=== PATIENT | female | born 1965 | race Two or more races ===

== ENCOUNTER 2020-12-24 05:10 | Inpatient (IN) | payer OTHER ==
[~2020-12-24] VITALS: Ht 162.6 cm; Wt 90.7 kg
[2020-12-24] VITALS (12 sets, daily range): BP systolic 96–139; BP diastolic 48–86
[~2020-12-24 05:10] MED LIST: JANUMET 50-1,01 EACH ORAL; LISINOPRIL-HCT1 EACH ORAL; ZOCOR10 MG ORAL
[2020-12-24] MEDS ORDERED: oxyCONTIN 20mg tab ORAL ONE (06:00)
[2020-12-24] MEDS ORDERED: celeBREX 200mg Cap **SURGERY PATIENTS ONLY ORAL ONE (06:21)
[2020-12-24] MEDS ORDERED: Tranexamic Acid 100 ML IVPB ONE (06:45)
[2020-12-24] MEDS ORDERED: NS Irrig 2000ml IRRIG ONE (06:49)
[2020-12-24] MEDS ORDERED: Sterile Water Irrig 2000ml IRRIG ONE (06:49)
[2020-12-24] MEDS ORDERED: LR 1000ml ONE (06:49)
[2020-12-24] MEDS ORDERED: Ketorolac 30mg Inj ONE (06:51)
[2020-12-24] MEDS ORDERED: Kenalog-40 1ml Vial ONE (06:52)
[2020-12-24] MEDS ORDERED: Bupivacaine w/Epi 0.25% 50ml vial INJ ONE (06:53)
[2020-12-24] MEDS ORDERED: Bacitracin 50000 Units Vial ONE (06:53)
[2020-12-24] MEDS ORDERED: NeoSporin Gu Irrig 1ml Amp IRRIG ONE (06:53)
[2020-12-24] MEDS ORDERED: Duramorph PF 5mg/10ml amp ONE (06:53)
[2020-12-24] MEDS ORDERED: EPINEPHrine 1mg/1ml Amp ONE ×2 (06:55→09:16)
[2020-12-24] MEDS ORDERED: cloNIDine 1000mcg/10ml inj ONE (06:55)
[2020-12-24] MEDS ORDERED: Bupivacaine 0.5% Inj 30 ml vial INJ ONE (06:55)
[2020-12-24] MEDS ORDERED: Lidocaine 1% Plain 30 ml INJ ONE (07:02)
[2020-12-24] MEDS ORDERED: Meperidine 25mg/1ml Inj (FOR RIGORS ONLY) IV PRN (07:15)
[2020-12-24] MEDS ORDERED: DiphenhydrAMINE 50mg/ml Inj IVP PRN (07:15)
[2020-12-24] MEDS ORDERED: Hydromorphone 0.5mg/0.5ml inj IVP PRN (07:15)
[2020-12-24] MEDS ORDERED: Labetalol 5mg/ml 20ml vial IV PRN (07:15)
[2020-12-24] MEDS ORDERED: Metoclopramide 10mg/2ml Inj IVP PRN (07:15)
[2020-12-24] MEDS ORDERED: LR 1000ml 1,000 ML IVLG SCH (07:15)
[2020-12-24] MEDS ORDERED: LORazepam Inj 2mg/ml 1ml IV PRN (07:15)
[2020-12-24] MEDS ORDERED: Atropine Sulfate 0.4mg/ml inj IVP PRN (07:15)
[2020-12-24] MEDS ORDERED: HYDROcodone/Acetamin 7.5/325 tab ORAL PRN (07:15)
[2020-12-24] MEDS ORDERED: oxyCODONE HCL/Acetaminophen 5/325mg ORAL PRN (07:15)
[2020-12-24] MEDS ORDERED: HYDROcodone/Acetamin 5/325 tab ORAL PRN (07:15)
[2020-12-24] MEDS ORDERED: Midazolam 2mg/2ml Inj IVP PRN (07:15)
[2020-12-24] MEDS ORDERED: fentaNYL 100 mcg/2 mL IV PRN (07:15)
--- NOTE | 2020-12-24 07:19 | Anethesia Preoperative Eval ---
Anesthesia Pre-op PMH/ROS General Date of Evaluation: Dec 24, 2020 Time of Evaluation: 06:49 Anesthesiologist: Inez ASA Score: ASA 3 Mallampati Score Class I : Soft palate, uvula, fauces, pillars visible Class II: Soft palate, uvula, fauces visible Class III: Soft palate, base of uvula visible Class IV: Only hard plate visible Mallampati Classification: Class II Surgeon: Geovanny Diagnosis: R Knee Pain Surgical Procedure: R Knee TKA Anesthesia History: none Family History: no anesthesia problems Allergies: Coded Allergies: No Known Allergies (Unverified , 12/23/20) Medications: see eMAR Patient NPO?: Yes Past Medical History Cardiovascular: Reports: HTN, other - HL Endocrine: Reports: DM Other: obesity - BMI 36 Anesthesia Pre-op Phys. Exam Physician Exam Last Vital Signs Date Time Temp Pulse Resp B/P (MAP) Pulse Ox O2 Delivery O2 Flow Rate FiO2 12/24/20 06:14 Room Air 12/24/20 05:59 98.2 63 18 138/74 (95) 100 Constitutional: NAD Neurologic: CN 2-12 intact Cardiovascular: RRR Respiratory: CTA Gastrointestinal: S/NT/ND Airway Exam Mallampati Score: Class II MO: full ROM: limited Teeth: missing, intact Anesthesia Pre-op A/P Risk Assessment & Plan Assessment: ASA 3 Plan: Spinal, GA, SED Status Change Before Surgery: No Pre-Antibiotics Dru Gram Ancef IV Given Within 1 Hr of Incision: Yes Time Given: 07:46 Joshua Wiley MD Dec 24, 2020 07:19
--- NOTE | 2020-12-24 07:19 | Immediate Post-Op Evaluation ---
Immediate Post-Op Evalulation Immediate Post-Op Evalulation Procedure: R TKA Date of Evaluation: Dec 24, 2020 Time of Evaluation: 09:54 IV Fluids: 1000 LR Blood Products: 0 Estimated Blood Loss: 50 Urinary Output: 300 Blood Pressure Systolic: 145 Blood Pressure Diastolic: 73 Pulse Rate: 85 Respiratory Rate: 16 O2 Sat by Pulse Oximetry: 100 Temperature (Fahrenheit): 97.6 Pain Score (1-10): 2 Nausea: No Vomiting: No Complications 0 Patient Status: awake, reacts, patent, none Hydration Status: adequate Dru Gram Ancef IV Given Within 1 Hr of Incision: Yes Time Given: 07:46 Joshua Wiley MD Dec 24, 2020 07:19
--- NOTE | 2020-12-24 07:41 | Pre-Procedure Note/Attestation ---
Pre-Procedure Note/Attestation Complete Prior to Procedure Planned Procedure: right Procedure Narrative: tka Indications for Procedure Pre-Operative Diagnosis: right knee replacement Attestation I attest that I discussed the nature of the procedure; its benefits; risks and complications; and alternatives (and the risks and benefits of such alternatives), prior to the procedure, with the patient (or the patient's legal cash posting representative). I attest that, if there was a reasonable possibility of needing a blood transfu fiorella, the patient (or the patient's legal cash posting representative) was given the [facility] standardized written summary, pursuant to the [place] Blood Safety Act ([place] Health and Safety Code # 1645, as amended). I attest that I re-evaluated the patient just prior to the surgery and that there has been no change in the patient's H&P, except as documented below: Alexx Small MD Dec 24, 2020 07:41
--- NOTE | 2020-12-24 07:41 | Operative Note - PDOC ---
Operative Note Operative Note Pre-op Diagnosis: right knee replacement Procedure: see op report Post-op Diagnosis: same as pre-op plus Operative Findings: consistent w/pre-op dx studies Anesthesia: regional Specimen: none Complications: none Condition: stable Estimated Blood Loss: none Implant(s) used?: Yes Alexx Small MD Dec 24, 2020 07:41
[2020-12-24] MEDS ORDERED: oxyCODONE 5mg IR tab ORAL PRN (07:45)
[2020-12-24] MEDS ORDERED: Morphine Sulfate 2mg/ml Inj IVP PRN (07:45)
[2020-12-24] MEDS ORDERED: Milk of Magnesia 30ml Ud ORAL PRN (07:45)
[2020-12-24] MEDS ORDERED: Morphine Sulfate 4mg/ml Inj IVP PRN ×2 (07:45→12:30)
[2020-12-24] MEDS ORDERED: D5 1/2NS w/KCl 20mEq 1,000 ML IV SCH (07:45)
[2020-12-24] MEDS ORDERED: Ropivacaine 5mg/ml Vial 30ml INJ ONE (09:16)
--- NOTE | 2020-12-24 09:43 | 48 Hour Post Anesthesia Eval ---
Post Anesthesia Evaluation Procedure: R TKA Date of Evaluation: Dec 24, 2020 Time of Evaluation: 12:34 Blood Pressure Systolic: 126 0: 48 Pulse Rate: 72 Respiratory Rate: 18 Temperature (Fahrenheit): 97.6 O2 Sat by Pulse Oximetry: 97 Airway: patent Nausea: No Vomiting: No Pain Intensity: 0 Hydration Status: adequate Cardiopulmonary Status: Stable Mental Status/LOC: patient returned to baseline Follow-up Care/Observations: 0 Post-Anesthesia Complications: 0 Follow-up care needed: N/A Joshua Wiley MD Dec 24, 2020 09:43
--- NOTE | 2020-12-24 12:37 | Diagnostic Imaging Report ---
Indication: Knee pain. Postop Technique: 2 views of the right knee. Comparison: None Findings: Patient status post recent total knee arthroplasty. Alignment appears satisfactory. No evidence of acute periprostatic fracture. Gas is in the soft tissues compatible with postoperative acquisition of the radiograph. Impression: Status post recent right total knee arthroplasty.
--- NOTE | 2020-12-24 12:58 | NUR ---
PT NOTE Patient seen for CPM setup RLE 0-60 degrees flexion with good tolerance. Reviewed with patient and Lula LOVE duration of CPM use today and use of control buttons. Patient unable to perform OOB activities at this time, will follow up in a.m.
[2020-12-24] MEDS: 1/2NS w/KCl 20mEq 1000ml 1,000 ML IV SCH ×2 (13:27→20:41)
[2020-12-24] MEDS: ceFAZolin 2gm/50ml Premix 50 ML IV SCH ×2 (15:56→23:46)
[2020-12-24] MEDS: NovoLOG Insulin Flexpen SUBQ SCH ×2 (15:58→20:44)
--- NOTE | 2020-12-24 16:44 | Operative Note - Dictated ---
DATE OF OPERATION: 12/24/2020 PREOPERATIVE DIAGNOSIS: Right knee traumatic aggravation of osteoarthritis. POSTOPERATIVE DIAGNOSIS: Right knee traumatic aggravation of osteoarthritis. PROCEDURE: Right total knee arthroplasty. SURGEON: Alexx Small MD. ANESTHESIA: Spinal. INDICATION FOR PROCEDURE: The patient is a pleasant 55-year-old female, who has had progressive right knee pain in lateral compartment, failed conservative treatment, elected to undergo right total knee arthroplasty. Risks, limitations, expectations, and complications of the procedure were discussed in detail. All questions addressed. DESCRIPTION OF PROCEDURE: After informed consent was obtained, the patient was brought to the operating room. The patient was placed under spinal anesthesia. Ancef was administered. Tranexamic acid administered. Time-out was performed. Right leg was prepped and draped in a sterile manner. A standard medial parapatellar arthrotomy was performed. Distal femur was well visualized. A distal femoral cutting block was placed and distal femur was resected. Posterior and anterior sizing guide was placed, measured between the 5 and 6, size 5 was selected and appropriately externally rotated 60 degrees. We made sure it was perpendicular to mechanical axis. However, 5 seemed a little bit too large, therefore 4 was selected. Anterior and posterior chamfer cuts were then made. At this point, external tibial cutting guide was placed, proximal tibia was resected with a size 4 femur, size 2 tibial base plate, 9 mm insert, and knee was taken to full extension, and had good stability at full extension, 10 degrees of flexion, 90 degrees flexion as well as mid flexion. Good tracking of the patella. At this point, the proximal tibia was well visualized and it seemed like the size 3 tibial base plate would provide appropriate coverage. It was appropriately externally rotated and keel punch was prepared. Patella was everted and resected. Freehand resection was performed. A 29 mm patellar component was selected, recalibrated to 22 mm. At this point, the cement was prepared. Implants were impacted into place. Excess cement was removed. Arthrotomy site was closed with #1 Vicryl suture, 2-0 Vicryl suture, and 3-0 Monocryl sutures. Steri-Strips and sterile dressing were applied. ESTIMATED BLOOD LOSS: None. COMPLICATIONS: None. SPECIMENS: None. IMPLANTS: Include size 4 femoral component, size 3 tibial base plate, 9 mm tibial insert, 29 mm patellar component. Alexx Small M.D. DR: GREGG JOB#: [id number] CC: DENISE
[2020-12-24] MEDS: Docusate 100mg cap ORAL SCH (18:02)
[2020-12-24] MEDS: Acetaminophen 500mg (ES) tab ORAL SCH (18:02)
[2020-12-24] MEDS: Aspirin Baby 81mg ORAL SCH (18:02)
--- NOTE | 2020-12-24 19:21 | NUR ---
NURSE HAND-OFF REPORT: Important Events on Shift:[Patient is POst op Right knee arthroplasty] Patient Status: [Full code] Diet: [Regular] Pending Orders: [] Pending Results/Labs:[] Pending MD notification:[] Latest Vital Signs: Temperature 97.9 , Pulse 59 , B/P 129 /63 , Respiratory Rate 20 , O2 SAT 99 , Nasal Cannula, O2 Flow Rate 3.0 . Vital Sign Comment: [] EKG Rhythm: rbb Rhythm change?: MD Notified?: - MD Response: Latest Meraz Fall Score: 55 Fall Risk: High Risk Safety Measures: Call light Within Reach, Bed Alarm Zone 2, Side Rails Side Rails x2, Bed position Low and Locked. Fall Precautions: Patient Fall Education Report given to [IVAN Juarez].
--- NOTE | 2020-12-24 19:43 | NUR ---
NURSE NOTES: Report received from IVAN Cotton. Patient is awake on bed in stable condition. Alert and oriented x 4. On regular diet, instructed and amenable. On oxygen via nasal cannula @ 3Lpm saturating 97% with no reported shortness of breath. With lee catheter in place, drained via gravity with andrés color urine output. IV site is on left hand g-18 running 1/2 NS + 20 meqs KCL @ 150cc/hour that is patent and intact. Safety measures are in place, bed in lowest and locked position, side rails up x 2, call light button and bedside table within reach, instructed to call for any assistance needed, will continue plan of care.
[2020-12-24] MEDS: oxyCONTIN 20mg tab ORAL SCH (20:43)
--- NOTE | 2020-12-24 21:10 | NUR ---
NURSE NOTES: Patient is post op right knee arthroplasty, IS provided at bedside and instructed on how to use it and how often.
[2020-12-25] VITALS: BP 140/55
[2020-12-25] MEDS: 1/2NS w/KCl 20mEq 1000ml 1,000 ML IV SCH ×2 (03:18→10:44)
[2020-12-25 04:00] VITALS: BP 132/60
[2020-12-25] MEDS: NovoLOG Insulin Flexpen SUBQ SCH ×2 (05:26→11:53)
--- NOTE | 2020-12-25 05:40 | NUR ---
NURSE NOTES: Naranjo catheter removed, catheter intact. Instructed to increase oral fluid intake and call for assistance if she feels the urge to urinate. Will continuously monitor.
[2020-12-25] MEDS ORDERED: ceFAZolin 1gm IVPB IVPB ONE ×2 (06:00)
[2020-12-25] MEDS ORDERED: celeBREX 200mg Cap **SURGERY PATIENTS ONLY ORAL ONE (06:00)
--- NOTE | 2020-12-25 07:11 | NUR ---
NURSE HAND-OFF REPORT: Important Events on Shift: Patient has been resting well the whole shift, complaints of pain and resolved with oxycodone and morphine. Had 1 episode of vomiting few minutes after receiving her morphine. Patient Status: Patient is awake on bed in stable condition. Plan of care endorsed. Diet: Regular diet. Pending Orders: none Pending Results/Labs:AM labs Pending MD notification:none Latest Vital Signs: Temperature 98.4 , Pulse 62 , B/P 132 /60 , Respiratory Rate 24 , O2 SAT 95 , Nasal Cannula, O2 Flow Rate 3.0 . Vital Sign Comment: stable EKG Rhythm: rbb Rhythm change?: MD Notified?: - MD Response: Latest Meraz Fall Score: 40 Fall Risk: Medium Risk Safety Measures: Call light Within Reach, Bed Alarm Zone 1, Side Rails Side Rails x2, Bed position Low and Locked. Fall Precautions: Yellow Socks Patient Fall Education Report given to IVAN Cotton.
[2020-12-25 07:14] LABS: HEMATOCRIT 34.4 % (37.0-47.0); HEMOGLOBIN 11.1 G/DL (12.0-16.0); MEAN CORPUSCULAR VOLUME 84 FL (80-99); PLATELET COUNT 323 K/UL (150-450); RED BLOOD COUNT 4.09 M/UL (4.20-5.40); RED CELL DISTRIBUTION WIDTH 12.7 % (11.6-14.8); WHITE BLOOD COUNT 15.6 K/UL (4.8-10.8)
--- NOTE | 2020-12-25 07:23 | NUR ---
NURSE NOTES: Received patient from IVAN Burroughs. Patient is AO x4 awake and able to make needs known. Patient shows no signs of distress and denies feeling pain at the moment. Patient is on room air and shows no signs of respiratory distress. IV is intact and running 1/2 NS w/ 20 KCL @ 150 cc/hr. There are no signs of erythema, infiltration, or bleeding. Patient is on CPM and tolerating well. Bed is in the lowest position, call light is within reach, side rails up x3. Will continue plan of care.
[2020-12-25 08:00] VITALS: BP 134/64
[2020-12-25] MEDS ORDERED: celeBREX 200mg Cap **SURGERY PATIENTS ONLY ORAL SCH (09:00)
[2020-12-25] MEDS: Docusate 100mg cap ORAL SCH ×2 (09:03→12:18)
[2020-12-25] MEDS: oxyCONTIN 20mg tab ORAL SCH (09:04)
--- NOTE | 2020-12-25 09:04 | 48 Hour Post Anesthesia Eval ---
Post Anesthesia Evaluation Procedure: R TKA Date of Evaluation: Dec 25, 2020 Time of Evaluation: 09:03 Blood Pressure Systolic: 136 0: 72 Pulse Rate: 64 Respiratory Rate: 20 Temperature (Fahrenheit): 97.6 O2 Sat by Pulse Oximetry: 98 Airway: patent Nausea: No Vomiting: No Pain Intensity: 2 Hydration Status: adequate Cardiopulmonary Status: stable Mental Status/LOC: patient returned to baseline Follow-up Care/Observations: n/a Post-Anesthesia Complications: none Follow-up care needed: N/A Zach Phipps MD Dec 25, 2020 09:04
[2020-12-25] MEDS: Aspirin Baby 81mg ORAL SCH (09:05)
[2020-12-25] MEDS: Acetaminophen 500mg (ES) tab ORAL SCH ×2 (09:05→12:18)
--- NOTE | 2020-12-25 09:35 | NUR ---
PT EVALUATION NOTE Patient seen for initial evaluation and treatment initiated. Patient presents with R knee pain and impaired functional mobility s/p R TKA. Patient requires CGA/min assist for bed mobility and CGA for transfers with FWW. Patient able to ambulate 50 ft with CGA and FWW, partial step-to gait pattern and c/o fatigue after ambulation. Patient will benefit from skilled inpatient PT intervention to increase RLE strength and postural stability for improved level of functional mobility and safety. Recommend discharge home with home PT follow-up. Recommend FWW for ambulation and raised toilet seat for home use. Addendum: 12/25/20 at 1019 by ОЛЬГА MERINO PT Amended: Links added.
[2020-12-25 12:00] VITALS: BP 132/61
--- NOTE | 2020-12-25 15:08 | NUR ---
NURSE NOTES: Dr. Small gave discharge order. Asked for patient to take walker and raised toilet seat. Patient is on room air and off lee catheter. Patient is voiding clear yellow urine. IV is taken off. Patient shows no signs of distress or pain at the time. Instructions to continue exercises at home given and to follow up with in [address] Small said medications were faxed to pharmacy already.
[2020-12-25] MEDS ORDERED: NS 275ml ONE (15:10)
--- NOTE | 2020-12-29 08:20 | Discharge Summary ---
Discharge Summary Discharge Summary _ Date of admission: 12/24/2020 Date of discharge: 12/25/[address] Small History of Present Illness and Brief Hospital Course Ms. Kurtis Huston is a 55-year-old [place] [facility] [place]. Patient had progressive right knee pain in the lateral compartment. Patient failed conservative treatment and elected to undergo right total knee arthroplasty. Patient was taken to the OR and right total knee arthroplasty was performed. Patient tolerated the procedure well. The details of the surgery can be found in the operative note by Dr. Small. Patient was also evaluated by a physical therapist after the surgery. Patient was able to ambulate 50 feet with a walker. Patient was medically stable for discharge and was discharged home on 12/25/2020. Patient was instructed to follow-up with Dr. Small in 1 week upon discharge. Her prescriptions were faxed to her pharmacy. Consultants: None Discharge Condition Stable Discharge Activity Exercise leg Discharge Diet Regular Final diagnoses Right knee traumatic aggravation of osteoarthritis s/p Right total knee arthroplasty I have been assigned to dictate discharge summary for this account. I was not involved in the patient's management Angelo Pena Dec 29, 2020 08:20
== END 2020-12-25 15:11 | disposition home or self-care (01) | DRG 470 ==
LOC: SDSOVERFLO 05:17 → EDSEX 07:00 → 2E 12:43
PROC: 0SRC0J9 Replacement of Right Knee Joint with Synthetic Substitute, Cemented, Open Approach (ICD-10-PCS; principal; 2020-12-24 07:00)
DX: M17.11 Unilateral primary osteoarthritis, right knee (principal); E11.9 Type 2 diabetes mellitus without complications
CPT/HCPCS: 36415; 82962; 85007; 85025; 86850; 86900; 86901; 87081; 94003; 94150; J1815; J2405; J2765